=== PATIENT | female | born 1955 | race Caucasian/White ===

== ENCOUNTER 2017-04-05 14:02 | Emergency (ER) | payer MEDICARE, MEDICAID ==
[~2017-04-05] VITALS: Ht 167.6 cm; Wt 100.0 kg
[~2017-04-05 14:02] MED LIST: CITA20TA11 PO; METH-603 PO; NORCO10T PO; ZOF4T PO
[2017-04-05] MEDS ORDERED: MUPI22OI30 TOP (15:14)
[2017-04-05 15:29] VITALS: BP 154/91
== END 2017-04-05 15:30 | disposition home or self-care (01) ==
LOC: ER 14:03
DX: A49.02 Methicillin resistant Staphylococcus aureus infection, unspecified site (principal); J45.909 Unspecified asthma, uncomplicated; K21.9 Gastro-esophageal reflux disease without esophagitis; G89.29 Other chronic pain; Z79.899 Other long term (current) drug therapy
CPT/HCPCS: 99283

== ENCOUNTER 2018-01-09 03:47 | Emergency (ER) | payer MEDICARE, MEDICAID ==
[~2018-01-09] VITALS: Ht 162.6 cm; Wt 81.8 kg
[~2018-01-09 03:47] MED LIST changes: +CITA-278 PO; -CITA20TA11 PO
[2018-01-09 04:28] VITALS: BP 139/70
== END 2018-01-09 04:30 ==
LOC: ER 03:47
DX: Z04.1 Encounter for examination and observation following transport accident (principal); J45.909 Unspecified asthma, uncomplicated; K21.9 Gastro-esophageal reflux disease without esophagitis; G89.29 Other chronic pain; Z79.899 Other long term (current) drug therapy; V89.0XXA Person injured in unspecified motor-vehicle accident, nontraffic, initial encounter; Y93.89 Activity, other specified; Y92.488 Other paved roadways as the place of occurrence of the external cause; Y99.8 Other external cause status
CPT/HCPCS: 99283

== ENCOUNTER 2019-06-14 17:29 | Emergency (ER) | payer MEDICAID, MEDICARE ==
[~2019-06-14] VITALS: Ht 162.6 cm; Wt 80.4 kg
[~2019-06-14 17:29] MED LIST changes: -CITA-278 PO; +CITA20TA28 PO
[2019-06-14 18:03] VITALS: BP 144/81
[2019-06-14] MEDS ORDERED: MUPI22OI30 TOP (20:14)
== END 2019-06-14 20:31 | disposition home or self-care (01) ==
LOC: ER 17:31
DX: J34.89 Other specified disorders of nose and nasal sinuses (principal); J45.909 Unspecified asthma, uncomplicated; K21.9 Gastro-esophageal reflux disease without esophagitis; G89.29 Other chronic pain; F41.9 Anxiety disorder, unspecified; F32.9 Major depressive disorder, single episode, unspecified; F41.0 Panic disorder [episodic paroxysmal anxiety]; Z98.890 Other specified postprocedural states; Z22.322 Carrier or suspected carrier of Methicillin resistant Staphylococcus aureus
CPT/HCPCS: 99283

== ENCOUNTER 2019-06-16 12:27 | Emergency (ER) | payer MEDICARE ==
[~2019-06-16] VITALS: Ht 162.6 cm; Wt 81.0 kg
[~2019-06-16 12:27] MED LIST changes: +MUPI22OI30 TOP
[2019-06-16 12:30] VITALS: BP 131/77
[2019-06-16] MEDS ORDERED: LIDOcaine 1% W/epiNEPHrine 1:200,000 10ml vial IJ ONE (12:40)
[2019-06-16] MEDS ORDERED: CEPH-572 PO (12:55)
== END 2019-06-16 13:17 | disposition home or self-care (01) ==
LOC: ER 12:28
DX: S60.552A Superficial foreign body of left hand, initial encounter (principal); J45.909 Unspecified asthma, uncomplicated; K21.9 Gastro-esophageal reflux disease without esophagitis; G89.29 Other chronic pain; F41.9 Anxiety disorder, unspecified; F32.9 Major depressive disorder, single episode, unspecified; F41.0 Panic disorder [episodic paroxysmal anxiety]; Z98.890 Other specified postprocedural states; Z79.2 Long term (current) use of antibiotics; Z79.899 Other long term (current) drug therapy; W45.8XXA Other foreign body or object entering through skin, initial encounter; Y93.89 Activity, other specified; Y92.89 Other specified places as the place of occurrence of the external cause; Y99.8 Other external cause status
CPT/HCPCS: 64450; 99284

== ENCOUNTER 2025-01-14 16:18 | Inpatient (IN) | payer MEDICARE ==
[~2025-01-14] VITALS: Ht 157.5 cm; Wt 78.0 kg
[~2025-01-14 16:18] MED LIST changes: +CITA-178 PO; -CITA20TA28 PO; -MUPI22OI30 TOP
--- NOTE | 2025-01-14 16:30 | Physician Documentation ---
Addendum CHIEF COMPLAINT/HPI: The patient is a 69-year-old female with no significant past medical history who presents with tachycardia and a painful, red and swollen left lower leg of three days' duration. Her only medication is half an aspirin every day. REVIEW OF SYSTEMS: Constitutional: Denies chills, fatigue, fever, weight gain or weight loss. HEENT: Denies hearing loss, sinus pressure or visual changes. Respiratory: Denies cough, shortness of breath or wheezing. Cardiovascular: Denies chest pain, pain while walking (claudication), edema or palpitations. Gastrointestinal: Denies abdominal pain, blood in stool, constipation, diarrhea, heartburn, loss of appetite, nausea or vomiting. Genitourinary: Denies painful urination (dysuria), excessive amount of urine (polyuria) or urinary frequency. Metabolic/Endocrine: Denies cold intolerance, heat intolerance, excessive thirst (polydipsia) or excessive hunger (polyphagia). Neurological: Denies dizziness, extremity numbness, extremity weakness, headaches, seizures or tremors. Psychiatric: Denies anxiety or depression. Integumentary: Denies breast discharge, breast lump, hives, mole change(s), rash or skin lesion. Musculoskeletal: Left lower leg is painful and swollen Hematologic: Denies easily bleeding, easily bruises, lymphedema or issues with blood clots. Immunologic: Denies food allergies or seasonal allergies. PHYSICAL EXAMINATION: Vitals and nursing note reviewed. Constitutional: General: Patient is awake, alert, oriented x 4 in no acute distress and well appearing. Speech is clear and lucid. Appearance: Normal appearance. Patient is not ill-appearing, toxic-appearing or diaphoretic. HENT: Head: Normocephalic and atraumatic. Mouth: Mucous membranes are moist. Pharynx: Oropharynx is clear. Eyes: General: No scleral icterus. Extraocular Movements: Extraocular movements intact. Pupils: Pupils are equal, round, and reactive to light. Neck: Supple, no Kernig or Brudzinski sign. Cardiovascular: Rate and Rhythm: Tachycardia. Heart sounds: No murmur heard. Pulmonary: Effort: No respiratory distress. Breath sounds: No wheezing, rhonchi or rales. Abdominal: General: There is no distension. Palpations: There is no fluid wave, hepatomegaly or mass. Tenderness: There is no abdominal tenderness. There is no guarding. Musculoskeletal: General: Left lower leg is erythematous, tender and swollen.. Skin: Coloration: Skin is not jaundiced. Findings: Cellulitis of the left lower leg. Neurological: Mental Status: Patient is alert. MEDICAL DECISION MAKING: This 69-year-old female presents with cellulitis of the left lower leg in addition to new onset AFib with RVR. I am obtaining a vascular study of the leg and starting her on fluids, antibiotics and diltiazem to control her rate. I have also ordered a CTA chest to rule out PE. She will require admission. Departure Disposition: ADMITTED INPATIENT Admitted to Inpatient Unit: to hospitalist Impression: Primary Impression: Atrial fibrillation with rapid ventricular response Additional Impression: Cellulitis of left lower leg Condition: FREDRICK Montes MD Jan 14, 2025 16:30
--- NOTE | 2025-01-14 16:33 | ELECTROCARDIOGRAPH REPORT ---
[facility] Test Date: 2025-01-14 Test Time: 16:31:11 Pat Name: ARMANDO ARRIAGA Department: [facility]- Patient ID: [id number] Room: Gender: F Analyst Programmer: : [id number] Requested By: FREDRICK GASPAR Order Number: [id number] Reading MD: Measurements Intervals [place] Rate: 149 P: 0 SD: 0 QRS: -22 QRSD: 96 T: 59 QT: 300 QTc: 473 Interpretive Statements Atrial fibrillation Borderline left axis deviation ST depression, probably rate related Please click the below link to view image of tracing.
--- NOTE | 2025-01-14 16:49 | RADIOLOGY REPORT ---
EXAM: DI CHEST,SINGLE VIEW HISTORY: R/O INFECTION COMPARISON: None TECHNIQUE: Portable upright AP view of the chest was performed. FINDINGS: There is mild central interstitial prominence. No pneumothorax or consolidative infiltrates. The heart is not enlarged. There is thoracic dextroscoliosis. IMPRESSION: Mild central interstitial prominence may be due to reactive airways disease or mild CHF. The lungs are otherwise clear.
[2025-01-14] MEDS: normal saline 1000ml 1,000 ML IV ONE ×4 (16:52→16:53)
[2025-01-14 16:55] LABS: MEAN PLATELET VOLUME 7.7 FL (7.4-10.4); RED CELL DISTRIBUTION WIDTH 14.4 % (11.5-14.5)
[2025-01-14 17:17] LABS: CREATININE 1.04 MG/DL (0.40-0.90); PRO BRAIN NATRIURETIC PEPTIDE 224 PG/ML (0-125); TOTAL CARBON DIOXIDE 26.5 MMOL/L (24-32); eCRCL 40 ML/MIN; eGFR 52 ML/MIN
[2025-01-14] MEDS: vancomycin/NS 1 GM ADD-VANTAGE 250 ML IV ONE (17:21)
[2025-01-14] MEDS: diltiazem 5mg/ml 5ml inj. IV ONE (17:26)
[2025-01-14 17:37] LABS: INR 1.0 INR
[2025-01-14] MEDS: piperacillin/tazo 4.5gm/100ml 100 ML IV SCH (17:55)
[2025-01-14] MEDS ORDERED: magnesium Cl slow-release 64mg tablet PO PRN (18:00)
[2025-01-14] MEDS ORDERED: mag hydrox/Alum hydrox/simeth 30ml oral suspension PO PRN (18:00)
[2025-01-14] MEDS ORDERED: magnesium sulf-water 4G/100mL 100 ML IV PRN (18:00)
[2025-01-14] MEDS ORDERED: magnesium sulf-water 2g/50mL 50 ML IV PRN (18:00)
[2025-01-14] MEDS ORDERED: morphine 4 MG/ML inj SYRINge IV PRN (18:00)
[2025-01-14] MEDS ORDERED: ondansetron/PF 4mg/2ml inj IV PRN (18:00)
[2025-01-14] MEDS ORDERED: potassium Cl 40MEQ/1/2NS 520ml 520 ML IV PRN (18:00)
[2025-01-14] MEDS ORDERED: potassium Cl 20 mEq SR tablet PO PRN ×2 (18:00)
--- NOTE | 2025-01-14 18:07 | RADIOLOGY REPORT ---
EXAM: CT CTA CHEST PE W/ IV CONTRAST HISTORY: Swollen leg and new onset AF RVR TECHNIQUE: CT angiogram was performed. CT scans at this facility use dose modulation, iterative reconstruction, and/or weight based dosing when appropriate to reduce radiation dose to as low as reasonably achievable. Coronal and sagittal reformations and maximum intensity projection images were created from the transaxial source data by the ct mri technologist and workstation, as well as 3-D volume rendered images with MIPs. COMPARISON: None FINDINGS: [LOWER NECK]: Unremarkable [LYMPH NODES/MEDIASTINUM]: No abnormal lymph nodes by CT size criteria [CARDIOVASCULAR]: Normal cardiac size. No pericardial effusion. No aneurysmal dilatation of the great vessels. Coronary artery calcifications. [PULMONARY ARTERIES]: No pulmonary arterial filling defect. Normal caliber of the main pulmonary artery. No evidence of elevated right heart pressures. [UPPER ABDOMEN]: Small sliding hiatal hernia. Mild stool burden. Trace cholelithiasis. [MUSCULOSKELETAL]: No acute fracture or aggressive focal osseous lesion. Multilevel degenerative change of the visualized spine. prior anterior cervical discectomy and fusion [CHEST WALL]: Unremarkable. [LUNG PARENCHYMA/PLEURAL SPACE]: No consolidation, suspicious focal airspace opacity, or suspicious nodules. No pleural effusion or pneumothorax. IMPRESSION: 1. No CTA evidence of pulmonary embolism.
--- NOTE | 2025-01-14 18:13 | VASCULAR REPORT ---
EXAM: VASC VL VENOUS HISTORY: Swelling TECHNIQUE: Duplex Doppler evaluation of the deep venous system of the left lower extremity from the common femoral vein to the popliteal vein including color Doppler and spectral/pulsed waveform analysis was performed. COMPARISON: None FINDINGS: The common femoral vein demonstrates appropriate compressibility and waveform variability. There is compressibility/patency of the great saphenous vein at the proximal thigh. The femoral vein demonstrates appropriate compressibility and waveform variability. The deep femoral vein demonstrates appropriate compressibility and waveform variability. The popliteal vein demonstrates appropriate compressibility and waveform variability. There is normal compressibility at the tibioperoneal trunk. IMPRESSION: 1. No left femoropopliteal venous thrombosis. If clinical concern/symptoms persist or worsen, short-interval follow-up study is suggested.
[2025-01-14] MEDS ORDERED: NO HOME MEDS (18:46)
[2025-01-14 18:56] LABS: CREATININE 0.93 MG/DL (0.40-0.90); TOTAL CARBON DIOXIDE 25.3 MMOL/L (24-32); eCRCL 45 ML/MIN; eGFR 60 ML/MIN
[2025-01-14 19:17] LABS: LEUKOCYTE ESTERASE ,URINE NEGATIVE (Neg); NITRITES, URINE NEGATIVE (Neg); OCCULT BLOOD,URINE TRACE-INTACT (Neg)
[2025-01-14 19:27] LABS: UA COLLECTION TYPE CLN CATCH MIDSTREAM
[2025-01-14 19:35] LABS: AMORPHOUS URATES 1+; MUCUS STRANDS FEW /LPF (Neg); SQUAMOUS EPITHELIAL CELL,UR FEW /LPF (FEW)
--- NOTE | 2025-01-14 19:53 | HISTORY AND PHYSICAL-Residence ---
History & Physical Providers to CC Resident Creating Document: SEAN MARROQUIN, RES ~ History of Present Illness Primary Medical Doctor: [facility] Reason for Admit\Complaint: Cellulitis of left leg, Atrial fibrillation with RVR History of Present Illness This is a 69 years old female with past medical history of Asthma, Bronchitis ,Pneumonia,GERD,Chronic Pain,Anxiety,Depression ,Panic Disorder, methamphetamine use comes to ED with severe left lower extremity pain and elevated heart rate. Patient endorses fever and chills from past 2 days, and initially she noticed small 4/10 painful red bump on her lateral side of left foot over the malleolus, which is gradually progress over over entire left leg including medial side of the thigh, with pain on 9/10 intensity stabbing pain, warm and tender to touch with no aggravating or relieving factors. Patient initial EKG shows AFib with RVR, and given a dose of diltiazem IV 20 mg in ED, she is currently having heart rate of 120-130 Patient denies any chest, diaphoresis, palpitations and edema Patient denies any history of congestive heart failure, coronary artery disease, AFib in the past Allergies: Coded Allergies: No Known Allergies (Unverified , 01/09/18) Home Medications Home Medications Active Reported No Home Medications (Home Med List) Each Past Medical History Past Medical History Asthma Bronchitis Pneumonia GERD Chronic Pain Anxiety Depression Panic Disorder Past Surgical History Surgical History Comment Cervical fusion surgery Past Social History Social History Comment Patient lives alone in a trailer, she does not have primary care physician, lives alone She has not alcohol drinker, not a smoker, she endorses use of methamphetamine use Occupation-retired, she ambulate herself without any assistance in her home Smoking: Non-Smoker Alcohol Use: None Drug Use: None Lives with: Spouse Occupation: disabled ROS ROS Constitutional: Awake, alert, oriented x4, Eyes: No pain, erythema, discharge, blurring of vision ENT: No teeth, No sore throat, epistaxis, tinnitus Cardiovascular: See HPI Respiratory: No shortness of breath , No cough, hemoptysis Gastrointestinal: No decrease appetite , No Nausea, vomiting,diarrhea and abdominal pain. Genitourinary: No frequency,urgency,No nocturia, hematuria or dysuria Musculoskeletal: See HPI Integumentary: No change in skin, hair, nails. No swelling, bruising, abrasions Neurologic: patient didnot report any symptoms Psychiatric: No delusions, loss of interest in normal activity or change in sleep pattern, hallucinations, suicidal ideations Endocrine: No fatigue, weakness, polydipsia, polyuria, change in appetite, heat or cold intolerance, sweating, dry skin Hematological: No bleeding, petechiae, Allergies: No asthma or urticaria Exam Vitals: Vital Signs Date Time Temp Pulse Resp B/P (MAP) Pulse Ox O2 Delivery O2 Flow Rate FiO2 01/14/25 18:33 98.8 122 20 106/64 (78) 96 01/14/25 17:33 0 General: GENERAL: Awake, alert, oriented x4 HEENT : Normocephalic, atraumatic, pupils equal and reactive to light, extraocular movements intact, no scleral icterus or conjunctival pallor, nasal mucosa is moist, oral mucosa moist, NECK: Nontender nodule felt on neck,trachea midline, no JV distention RESPIRATORY: Chest expansion equal bilaterally, breath sounds vesicular, no wheezes, or rhonchi. No use of accessory muscles, no tenderness on palpation. CARDIOVASCULAR: Tachycardic-irregularly irregular, no murmurs, no rubs, or gallops ABDOMEN: Soft, nontender, nondistended, bowel sounds present and normoactive. No organomegaly, no palpable mass, no rebound or guarding NEUROLOGICAL: Alert, oriented, normal memory, speech is normal Cranial nerves II-XII- intact Motor strength 5/5 on right side, could not elicit on left side because of pain Sensation-intact in all extremities Reflexes +2 and symmetrical Coordination is intact EXTREMITIES: Red-warm swelling felt on palpation which is tender, decreased pulsation on left lower extremity, multiple nail scratches are seen on right lower extremity and some on left lower extremity Psychiatric:Appropriate mood and affect,No hallucinations or suicidal ideation Diagnostic Data Last Recorded Lab Results: 01/14/25 1634 01/14/25 1817 Diagnostic Data: Laboratory Tests Test 01/14/25 16:35 Prothrombin Time 10.0 SECONDS (9.0-12.0) INR International Normalized Ratio 1.0 INR Coagulation Comments Advance Care Planning Advanced Care plannin - 30 Minutes Additional Plan 69 years old female with Asthma,Bronchitis,Pneumonia,GERD,Chronic Pain,Anxiety,Depression ,Panic Disorder, methamphetamine use is currently evaluated for cellulitis of left lower extremity Left lower leg swelling Likely due to Cellulites DVT ruled out Patient has risk factor of methamphetamine use, poor living condition Temperature 99.5, pulse 151, SpO2 96 on room air WBC normal, procalcitonin 2.11, CRP:2.3, lactic acid is normal Vascular ultrasound:No left femoropopliteal venous thrombosis Chest/thorax CTA: No CTA evidence of pulmonary embolism. Given 1 dose of vancomycin in ED Preliminary blood cultures are negative Plan is to continue IV Zosyn 4.5 mg and vancomycin pharmacy to dose Wound care consulted Follow up with CBC/CMP Atrial fibrillation with RVR CHADVASC score-2 Differential includes pulmonary embolus, structural heart disease, Initial EKG shows AFib with RVR Initial Troponin are negative Follow up with urine tox,TSH, echocardiogram We will start Eliquis 2.5 mg p.o. b.i.d. from tomorrow Amphetamine use disorder Substance use navigator ordered Chronic conditions Patient not taking any medication Asthma Anxiety Depression Code Status: Full DVT prophylaxis: Heparin subQ Analgesia/Sedation: Morphine Line/tube: Peripheral Nutrition: Regular PT: Order Prognosis: Guarded Disposition: Patient will be monitored in PCU under 24 hours telemetry Sean Marroquin PGY1-Internal Medicine Resident Date of Service: Jan 14, 2025 Billing Provider: ARJUN CARRANZA MD Common Visit Codes: [id number] INP/OBS CARE (HIGH) Secondary Visit Codes: [id number] CARE PLAN 30 MINUTES SEAN MARROQUIN, RES Jan 14, 2025 19:53 ARJUN CARRANZA MD Jan 19, 2025 15:25
[2025-01-14] MEDS: docusate sod 100mg capsule PO SCH (20:00)
[2025-01-14] MEDS ORDERED: heparin, porcine 5000 units/ml vial SQ SCH (20:00)
[2025-01-14] MEDS: K and/or MAG REPLACEMENT MC SCH (20:00)
[2025-01-14] MEDS: PERFLUTREN PROTEIN-A MICROSPHR (Optison) 0.22 MG/ML 3ML VIAL IV ONE (20:04)
[2025-01-14 20:18] LABS: URINE AMPHETAMINE SCREEN POSITIVE (Neg); URINE BARBITUATE SCREEN NEGATIVE (Neg); URINE BENZODIAZEPINES SCREEN NEGATIVE (Neg); URINE CANNABINOID SCREEN NEGATIVE (Neg); URINE COCAINE SCREEN NEGATIVE (Neg); URINE METHADONE SCREEN NEGATIVE (Neg); URINE OPIATE SCREEN NEGATIVE (Neg); URINE PHENCYCLIDINE SCREEN NEGATIVE (Neg)
[2025-01-14 21:36] LABS: ETHANOL < 10 MG/DL (<10)
[2025-01-14] MEDS: multivitamins, therapeutics tablet PO SCH (22:46)
[2025-01-15] VITALS (9 sets, daily range): BP systolic 100–139; BP diastolic 49–68; PULSE 83–101; RESP 12–24; TEMP 97.8–100.7; O2SAT 94–99
[2025-01-15] MEDS: ringers solution, lacted 1,000 ML IV ONE (02:13)
[2025-01-15] MEDS: morphine 4 MG/ML inj SYRINge IV PRN (02:33)
[2025-01-15] MEDS: metoprolol tartrate 1mg/ml inj IV SCH (03:29)
[2025-01-15 07:57] LABS: MEAN PLATELET VOLUME 7.8 FL (7.4-10.4); RED CELL DISTRIBUTION WIDTH 14.4 % (11.5-14.5)
[2025-01-15 08:00] LABS: CREATININE 0.80 MG/DL (0.40-0.90); TOTAL CARBON DIOXIDE 25.5 MMOL/L (24-32); eCRCL 52 ML/MIN; eGFR 71 ML/MIN
[2025-01-15] MEDS: vancomycin/NS 1 GM ADD-VANTAGE 250 ML IV SCH (09:39)
[2025-01-15] MEDS: metoprolol succinate 25mg (24-HOUR) SR. Tablet PO SCH (11:05)
--- NOTE | 2025-01-15 13:23 | RADIOLOGY REPORT ---
EXAM: CT CT LOWER EXTREMITY INDICATION: OSTEOMYELITIS WITH HEAVY METHAMPHETAMINE USE TECHNIQUE: Axial images of left lower extremity have been obtained along with coronal and sagittal reformatted images. All CT scans at this facility use dose modulation, iterative reconstruction, and/or weight based dosing when appropriate to reduce radiation dose to as low as reasonably achievable. COMPARISON: None FINDINGS: BONES: No CT evidence of an acute fracture or aggressive osseous lesion. Slight relative hypoattenuation of the distal fibula which may be seen in the setting of hyperemia however if continued clinical concern for osteomyelitis and if there is overlying ulceration, osteomyelitis not excluded. Subchondral cysts of the medial tibial plateau MUSCLES: No abnormal attenuation. JOINT SPACES: No joint effusion. TENDONS/LIGAMENTS: Fluid distention of the peroneal tendon sheath of the malleolar to inframalleolar segment. Slight thickening of the distal achilles tendon correlate for tendinosis. OTHER: Vascular calcifications. Significant surrounding subcutaneous adipose tissue edema of the entirety left lower extremity extending to the level of the forefoot. No drainable fluid collection suspected likely reactive left inguinal lymph nodes chondrocalcinosis. Midfoot degenerative change particularly with subchondral cysts of the intermediate cuneiform. Subchondral cysts of the superolateral talar dome. IMPRESSION: 1. No CT evidence of an acute fracture or aggressive osseous lesion. 2. Slight relative hypoattenuation of the distal fibula which may be seen in the setting of hyperemia however if continued clinical concern for osteomyelitis and if there is overlying ulceration, osteomyelitis not excluded. 3. Significant surrounding subcutaneous adipose tissue edema of the entirety left lower extremity extending to the level of the forefoot.
--- NOTE | 2025-01-15 17:39 | PROGRESS NOTE- Residence ---
Progress Note - Resident Providers to CC Resident Creating Document: KATARINA ZAPATA RES ~ Antibiotic Timeout Antibiotic Ordered?: Yes Subjective Seen and examined the patient at bedside. Still endorses pain over the left lower extremity, redness. Extending from the lower leg to above knee. We did the CAT scan of the lower extremity and they could not able to rule out osteomyelitis and we are evaluating with the MRI of the lower extremity for possible osteomyelitis. Telemetry showing sinus rhythm with heart rate in 90s. Objective Vital Signs Date Time Temp Pulse Resp B/P (MAP) Pulse Ox O2 Delivery O2 Flow Rate FiO2 01/15/25 15:00 98.7 94 12 104/56 (72) 96 Room Air 01/15/25 08:00 0.0 Result Diagram: 01/15/2564101/15/25641 GENERAL: Awake, alert, oriented x4 HEENT : Normocephalic, atraumatic, pupils equal and reactive to light, extraocular movements intact, no scleral icterus or conjunctival pallor, nasal mucosa is moist, oral mucosa moist, NECK: Nontender nodule felt on neck,trachea midline, no JV distention RESPIRATORY: Chest expansion equal bilaterally, breath sounds vesicular, no wheezes, or rhonchi. No use of accessory muscles, no tenderness on palpation. CARDIOVASCULAR: Tachycardic-irregularly irregular, no murmurs, no rubs, or gallops ABDOMEN: Soft, nontender, nondistended, bowel sounds present and normoactive. No organomegaly, no palpable mass, no rebound or guarding NEUROLOGICAL: Alert, oriented, normal memory, speech is normal Cranial nerves II-XII- intact Motor strength 5/5 on right side, could not elicit on left side because of pain Sensation-intact in all extremities Reflexes +2 and symmetrical Coordination is intact EXTREMITIES: Red-warm swelling felt on palpation which is tender, decreased pulsation on left lower extremity, multiple nail scratches are seen on right lower extremity and some on left lower extremity Psychiatric:Appropriate mood and affect Coagulation Studies Laboratory Tests Test 01/14/25 16:35 Prothrombin Time 10.0 SECONDS (9.0-12.0) INR International Normalized Ratio 1.0 INR Coagulation Comments Advance Care Planning Advanced Care plannin - 30 Minutes Plan Plan Left lower extremity cellulitis Sepsis on POA We will continue vancomycin and Zosyn We will consult ID if MRI positive to be with osteomyelitis Received 2 L of normal saline and 1 L of ringer lactate CT lower extremity 1. No CT evidence of an acute fracture or aggressive osseous lesion. 2. Slight relative hypoattenuation of the distal fibula which may be seen in the setting of hyperemia however if continued clinical concern for osteomyelitis and if there is overlying ulceration, osteomyelitis not excluded. 3.Significant surrounding subcutaneous adipose tissue edema of the entirety left lower extremity extending to the level of the forefoot. Ordered MRI we will follow up with the results for osteomyelitis We will continue IV normal saline at the rate of 100 mL/hour AFib with RVR , resolved Kofi Vasc score of 2 Dilated cardiomyopathy with pulmonary artery hypertension Cor pulmonale Currently on metoprolol 50 mg p.o. daily Started on Eliquis 5 mg p.o. b.i.d. Echo showed LVEF of 55-60% and the pulmonary artery systolic pressure 48 On metoprolol 50 p.o. daily Substance use Methamphetamine use On Detox protocol So substance use on social consults were placed Urinalysis showed methamphetamine Anxiety Depression Discontinued home meds of Celexa, methadone from the med rec list Code status: Full code DVT prophylaxis: On Eliquis PT: Ordered Prognosis: Guarded Katarina Zapata IM resident, PGY 2 Date of Service: Jan 15, 2025 Billing Provider: ARJUN CARRANZA MD Common Visit Codes: [id number] INP/OBS CARE(HIGH) KATARINA ZAPATA, RES Jan 15, 2025 17:39 ARJUN CARRANZA MD Jan 19, 2025 15:26
[2025-01-15] MEDS: magnesium hydroxide 30ml (MOM) UD suspension PO PRN (20:57)
[2025-01-15] MEDS: normal saline 1000ml 1,000 ML IV SCH (20:59)
[2025-01-16] VITALS (8 sets, daily range): BP systolic 103–143; BP diastolic 55–73; PULSE 79–97; RESP 12–23; TEMP 96.7–97.7; O2SAT 96–99
[2025-01-16] MEDS: VANCOMYCIN LEVEL IV ONE (05:30)
--- NOTE | 2025-01-16 05:35 | CARDIOLOGY REPORT ---
APPROVED REPORT EXAM: Comprehensive 2D, Doppler, and color-flow Echocardiogram. Patient Location: 3026 A Blood Pressure: 119/68 mmHg Heart Rate: 86-115 bpm Rhythm: Atrial Fibrillation Indications Arrhythmia Atrial Fibrillation with RVR Lower Leg Infection Cellutitus of Lower Legs Hx of Meth Use Community Health Education Coordinator: None Previous echo: None 2D Dimensions RVDd 3.4 cm LA Diam 4.0 cm RA Minor 3.8 cm LVOT Diameter 2.01 (1.8-2.4cm) IVC 23.00 mm CO 6.6 L/min M-Mode Dimensions Left Atrium(MM) 3.54 (2.5-4.0cm) IVSd 1.07 (0.7-1.1cm) LVDd 4.30 (4.0-5.6cm) Aortic Root 3.17 (2.2-3.7cm) PWd 1.10 (0.7-1.1cm) Aortic Cusp Exc 2.10 (1.5-2.0cm) IVSs 1.50 cm MV EPSS 1.3 (<0.5cm) LVDs 2.99 (2.0-3.8cm) FS (%) 30 % PWs 1.50 cm ESV(Teich) 34.8 ml LVEF(%) 58 (>50%) Aortic Valve AoV Peak Jaison. 184.0 cm/s AoV VTI 32.8 cm AO Peak GR. 13.5 mmHg AO Mean GR. 8 mmHg LVOT VTI 22.57 cm LVOT Peak Jaison. 88.4 cm/s SORAYA(VTI)/BSA 2.18 cm2/m2 SORAYA (VTI) 2.18 cm2 AI P 1/2 Time 348 ms AV DI 0.69 % Mitral Valve MV E Velocity 118.5 cm/s MV DECEL TIME 236 ms MV A Velocity 108.5 cm/s E/A Ratio 1.1 Tricuspid Valve TR P. Velocity 308 cm/s RAP ESTIMATE 10 mmHg TR Peak Gr. 38 mmHg RVSP 48 mmHg LEFT VENTRICLE Normal LV size and wall thickness. Overall systolic function is normal. Overall LVEF is 55-60%. RIGHT VENTRICLE Right ventricle is moderately dilated with grossly normal function. Estimated PA systolic pressure is 48 mmHg. ATRIA The left atrium size is normal. The right atrium size is normal. AORTIC VALVE Trileaflet AV appears sclerotic and mildly calcified without stenosis. Moderate insufficiency. MITRAL VALVE Mild MV annular calcification without stenosis. Trace regurgitation. TRICUSPID VALVE TV appears structurally normal with trace regurgitation. Elevated right heart pressures as noted above. PULMONIC VALVE Normal PV without stenosis, physiologic insufficiency. GREAT VESSELS The aortic root is normal in size. IVC is dilated and collapses less than 50% with inspiration. PERICARDIUM Normal pericardium. No pericardial effusion seen. Conclusion Normal LV size and wall thickness. Overall systolic function is normal. Overall LVEF is 55-60%. Right ventricle is moderately dilated with grossly normal function. Estimated PA systolic pressure is 48 mmHg. The left atrium size is normal. The right atrium size is normal. Trileaflet AV appears sclerotic and mildly calcified without stenosis. Moderate insufficiency. Mild MV annular calcification without stenosis. Trace regurgitation. TV appears structurally normal with trace regurgitation. Normal pericardium. No pericardial effusion seen.
[2025-01-16 06:49] LABS: MEAN PLATELET VOLUME 8.1 FL (7.4-10.4); RED CELL DISTRIBUTION WIDTH 14.2 % (11.5-14.5)
[2025-01-16 07:06] LABS: CREATININE 0.89 MG/DL (0.40-0.90); TOTAL CARBON DIOXIDE 27.1 MMOL/L (24-32); eCRCL 47 ML/MIN; eGFR 63 ML/MIN
--- NOTE | 2025-01-16 12:19 | RADIOLOGY REPORT ---
CLINICAL HISTORY: Osteomyelitis of left lower leg. TECHNIQUE: Multi sequence multi planar MRI images of the left lower leg were obtained prior to and after the uneventful administration of 15 mL clariscan contrast. COMPARISON: CT CT LOWER EXTREMITY on DOS: 01/15/25, VASC VL VENOUS on DOS: 01/14/25 FINDINGS: Marked subcutaneous edema and enhancement in the right lower leg consistent with cellulitis in the appropriate clinical setting. No peripherally enhancing fluid collection identified to suggest abscess. No findings are seen to suggest myositis or fasciitis. No evidence for osteomyelitis. IMPRESSION: Right lower leg cellulitis without evidence for abscess, myositis, or osteomyelitis.
[2025-01-16] MEDS: GADOTERATE MEGLUMINE 7.5 MMOL/15 ML VIAL IV ONE (15:05)
--- NOTE | 2025-01-16 17:35 | PROGRESS NOTE- Residence ---
Progress Note - Resident Providers to CC Resident Creating Document: GISSEL MARROQUIN RES ~ Antibiotic Timeout Antibiotic Ordered?: Yes Subjective Patient was examined at the bed, she still endorses pain in her left lower extremity, cellulitis remains within the previously marked borders with no progression beyond prior demarcation, and denies any other acute symptoms other than mild tiredness Objective Vital Signs Date Time Temp Pulse Resp B/P (MAP) Pulse Ox O2 Delivery O2 Flow Rate FiO2 01/16/25 14:54 18 01/16/25 11:00 97.6 82 126/71 (89) 96 Room Air 01/15/25 08:00 0.0 Result Diagram: 01/16/2561501/16/25 06 GENERAL: Awake, alert, oriented x4 HEENT : Normocephalic, atraumatic, pupils equal and reactive to light, extraocular movements intact, no scleral icterus or conjunctival pallor, nasal mucosa is moist, oral mucosa moist, NECK: Nontender nodule felt on neck, nontender nodule felt on thyroid gland, trachea midline, no JV distention RESPIRATORY: Chest expansion equal bilaterally, breath sounds vesicular, no wheezes, or rhonchi. No use of accessory muscles, no tenderness on palpation. CARDIOVASCULAR: Tachycardic-irregularly irregular, no murmurs, no rubs, or gallops ABDOMEN: Soft, nontender, nondistended, bowel sounds present and normoactive. No organomegaly, no palpable mass, no rebound or guarding NEUROLOGICAL: Alert, oriented, normal memory, speech is normal Cranial nerves II-XII- intact Motor strength 5/5 on right side, could not elicit on left side because of pain Sensation-intact in all extremities Reflexes +2 and symmetrical Coordination is intact EXTREMITIES: Red-warm swelling felt on palpation which is tender, decreased pulsation on left lower extremity, multiple nail scratches are seen on right lower extremity and some on left lower extremity, traumatic injury at left posterior heel Psychiatric:Appropriate mood and affect Coagulation Studies Laboratory Tests Test 01/14/25 16:35 Prothrombin Time 10.0 SECONDS (9.0-12.0) INR International Normalized Ratio 1.0 INR Coagulation Comments Advance Care Planning Advanced Care plannin - 30 Minutes Plan Plan Left lower extremity cellulitis Sepsis on POA Vitals are stable, WBC is normal, Received 2 L of normal saline and 1 L of ringer lactate CT lower extremity 1. No CT evidence of an acute fracture or aggressive osseous lesion. 2. Slight relative hypoattenuation of the distal fibula which may be seen in the setting of hyperemia however if continued clinical concern for osteomyelitis and if there is overlying ulceration, osteomyelitis not excluded. 3.Significant surrounding subcutaneous adipose tissue edema of the entirety left lower extremity extending to the level of the forefoot. MRI ruled out osteomyelitis Continue vancomycin pharmacy to dose and Zosyn 4.5 g per 100 mL We will continue IV normal saline at the rate of 100 mL/hour Follow up with procalcitonin AFib with RVR , resolved Kofi Vasc score of 2 Dilated cardiomyopathy with pulmonary artery hypertension Cor pulmonale Heart rate today is 82 Explained patient about risk and benefits of Eliquis, patient agreed with the plan Currently on metoprolol 50 mg p.o. daily Echo showed LVEF of 55-60% and the pulmonary artery systolic pressure 48 Continue Eliquis 5 mg p.o. b.i.d. Continue On metoprolol succinate 50 p.o. daily Substance use Methamphetamine use substance use navigator on social consults were placed Urinalysis showed methamphetamine Anxiety Depression Patient is currently on Ativan q.2h p.r.n. Melatonin for sleep Code status: Full code DVT prophylaxis: On Eliquis PT: Ordered Prognosis: Guarded Disposition-patient will be monitored in PCU with 24 hours telemetry, she is currently on Eliquis and her MRI ruled out osteomyelitis left lower extremity, possible discharge in 48 hours if patient condition is stable Gissel Marroquin PGY1-Internal Medicine Resident Date of Service: Jan 16, 2025 Billing Provider: DELLA MCMAHON DO Common Visit Codes: [id number] INP/OBS CARE(HIGH) GISSEL MARROQUIN, RES Jan 16, 2025 17:35 DELLA MCMAHON DO Jan 16, 2025 18:17
[2025-01-16] MEDS: VANCOmycin 1250MG/NS 250ml Bag 250 ML IV SCH (19:28)
[2025-01-17] VITALS (8 sets, daily range): BP systolic 104–129; BP diastolic 53–66; PULSE 67–83; RESP 16–20; TEMP 97.7–98.5; O2SAT 95–98
[2025-01-17] MEDS: HYDROcodone/acetaminophen 5mg/325mg tablet PO PRN (02:26)
[2025-01-17 06:35] LABS: MEAN PLATELET VOLUME 8.0 FL (7.4-10.4); RED CELL DISTRIBUTION WIDTH 14.2 % (11.5-14.5)
[2025-01-17 06:56] LABS: CREATININE 0.69 MG/DL (0.40-0.90); TOTAL CARBON DIOXIDE 29.5 MMOL/L (24-32); eCRCL 60 ML/MIN; eGFR 84 ML/MIN
[2025-01-17] MEDS: HYDROcodone/acetaminophen 10/325mg tab PO PRN (12:14)
--- NOTE | 2025-01-17 16:25 | PROGRESS NOTE- Residence ---
Progress Note - Resident Providers to CC Resident Creating Document: GISSEL MARROQUIN RES ~ Antibiotic Timeout Antibiotic Ordered?: Yes Subjective Patient was examined at the bed, she still complains pain 8/10 in intensity on left lower extremity, cellulitis remains within the previously marked borders and denies any other acute symptoms. Objective Vital Signs Date Time Temp Pulse Resp B/P (MAP) Pulse Ox O2 Delivery O2 Flow Rate FiO2 01/17/25 15:06 98.2 75 16 104/53 (70) 96 Room Air 01/16/25 08:00 0.0 Result Diagram: 01/17/2553701/17/25537 GENERAL: Awake, alert, oriented x4 HEENT : Normocephalic, atraumatic, pupils equal and reactive to light, extraocular movements intact, no scleral icterus or conjunctival pallor, nasal mucosa is moist, oral mucosa moist, NECK: Nontender nodule felt on neck, nontender nodule felt on thyroid gland, trachea midline, no JV distention RESPIRATORY: Chest expansion equal bilaterally, breath sounds vesicular, no wheezes, or rhonchi. No use of accessory muscles, no tenderness on palpation. CARDIOVASCULAR: Tachycardic-irregularly irregular, no murmurs, no rubs, or gallops ABDOMEN: Soft, nontender, nondistended, bowel sounds present and normoactive. No organomegaly, no palpable mass, no rebound or guarding NEUROLOGICAL: Alert, oriented, normal memory, speech is normal Cranial nerves II-XII- intact Motor strength 5/5 on right side, could not elicit on left side because of pain Sensation-intact in all extremities Reflexes +2 and symmetrical Coordination is intact EXTREMITIES: Red-warm swelling felt on palpation which is tender, decreased pulsation on left lower extremity, multiple nail scratches are seen on right lower extremity and some on left lower extremity, traumatic injury at left posterior heel Psychiatric:Appropriate mood and affect Coagulation Studies Laboratory Tests Test 01/14/25 16:35 Prothrombin Time 10.0 SECONDS (9.0-12.0) INR International Normalized Ratio 1.0 INR Coagulation Comments Advance Care Planning Advanced Care plannin - 30 Minutes Plan Plan Left lower extremity cellulitis Sepsis on POA Vitals are stable, WBC is normal, Received 2 L of normal saline and 1 L of ringer lactate CT lower extremity 1. No CT evidence of an acute fracture or aggressive osseous lesion. 2. Slight relative hypoattenuation of the distal fibula which may be seen in the setting of hyperemia however if continued clinical concern for osteomyelitis and if there is overlying ulceration, osteomyelitis not excluded. 3.Significant surrounding subcutaneous adipose tissue edema of the entirety left lower extremity extending to the level of the forefoot. MRI ruled out osteomyelitis Procalcitonin -0.60 Continue vancomycin pharmacy to dose and Zosyn 4.5 g per 100 mL We will continue IV normal saline at the rate of 100 mL/hour Slightly improved however the intensity of the erythema is unchanged from yesterday AFib with RVR , Kofi Vasc score of 2 Dilated cardiomyopathy with pulmonary artery hypertension Cor pulmonale Heart rate today is 75 Explained patient about risk and benefits of Eliquis, patient agreed with the plan Echo showed LVEF of 55-60% and the pulmonary artery systolic pressure 48 Continue Eliquis 5 mg p.o. b.i.d. Continue On metoprolol succinate 50 p.o. daily Substance use Methamphetamine use substance use navigator on social consults were placed Urinalysis showed methamphetamine Anxiety Depression Patient is currently on Ativan q.2h p.r.n. Melatonin for sleep Code status: Full code DVT prophylaxis: On Eliquis PT: Ordered Prognosis: Guarded Disposition-patient was monitored in PCU, pain is controlled with [place] 10 mg, PT evaluated the patient and improved today however not ready for discharge and we will need to ambulate stairs Gissel Marroquin PGY1-Internal Medicine Resident Date of Service: Jan 17, 2025 Billing Provider: DELLA MCMAHON DO Common Visit Codes: [id number] INP/OBS CARE(HIGH) GISSEL MARROQUIN, RES Jan 17, 2025 16:25 DELLA MCMAHON DO Jan 17, 2025 16:35
[2025-01-18 02:12] VITALS: BP 134/61; PULSE 81; RESP 19; TEMP 98.8; O2SAT 94
[2025-01-18] MEDS: VANCOMYCIN LEVEL IV ONE (05:30)
[2025-01-18 06:10] LABS: MEAN PLATELET VOLUME 7.6 FL (7.4-10.4); RED CELL DISTRIBUTION WIDTH 14.0 % (11.5-14.5)
[2025-01-18 06:31] LABS: EOSINOPHILS % (MANUAL) 2.0 % (0-6); LYMPHOCYTES % (MANUAL) 21.0 % (21-51); METAMYLEOCYTES% (MANUAL) 2.0 % (0-0); MONOCYTES % (MANUAL) 9.0 % (2-12); NEUTROPHILS % (MANUAL) 66.0 % (42-75); PLATELET ESTIMATE NORMAL
[2025-01-18 06:33] LABS: CREATININE 0.83 MG/DL (0.40-0.90); TOTAL CARBON DIOXIDE 29.3 MMOL/L (24-32); eCRCL 50 ML/MIN; eGFR 68 ML/MIN
[2025-01-18 07:00] VITALS: BP 139/69; PULSE 90; RESP 18; TEMP 99.3; O2SAT 90
[2025-01-18 11:00] VITALS: BP 132/72; PULSE 92; RESP 24; TEMP 99; O2SAT 95
[2025-01-18 14:10] VITALS: RESP 19
[2025-01-18] MEDS ORDERED: vancomycin/NS 1 GM ADD-VANTAGE 250 ML X 1 DOSE IV SCH (18:00)
--- NOTE | 2025-01-18 19:11 | DISCHARGE SUMMARY-Residence ---
Discharge Summary Providers to CC Resident Creating Document: CONCEPCION VELASQUEZ JACQUIE, RES ~ Discharge Summary Admission Diagnosis: CELLULITIS, SEPSIS, A-FIB WITH RVR Hospital Course DATE OF ADMISSION: 01/14/2025 DATE OF DISCHARGE: 01/18/2025 Discharge Diagnosis\Comment: Left lower extremity cellulitis Sepsis on POA AFib with RVR , Kofi Vasc score of 2 Dilated cardiomyopathy with pulmonary artery hypertension Cor pulmonale Substance use Methamphetamine use Anxiety Depression Operations\Procedures: None Consultants: None Complications: None Condition on DC: Stable for transfer Discharge Summary: History of Present Illness This is a 69 years old female with past medical history of Asthma, Bronchitis ,Pneumonia,GERD,Chronic Pain,Anxiety,Depression ,Panic Disorder, methamphetamine use comes to ED with severe left lower extremity pain and elevated heart rate. Patient endorses fever and chills from past 2 days, and initially she noticed small 4/10 painful red bump on her lateral side of left foot over the malleolus, which is gradually progress over over entire left leg including medial side of the thigh, with pain on 9/10 intensity stabbing pain, warm and tender to touch with no aggravating or relieving factors. Patient initial EKG shows AFib with RVR, and given a dose of diltiazem IV 20 mg in ED, she is currently having heart rate of 120-130. Patient denies any chest, diaphoresis, palpitations and edema. Patient denies any history of congestive heart failure, coronary artery disease, AFib in the past Hospital course: Patient was admitted for Left lower leg swelling Secondary to cellulitis. DVT ruled out by venous Doppler. On admission patient had fever with Temperature 99.5, pulse 151, SpO2 96 on room air. WBC normal, procalcitonin 2.11, CRP:2.3, lactic acid is normal. vascular ultrasound:No left femoropopliteal venous thrombosis. Chest/thorax CTA: No CTA evidence of pulmonary embolism.. Given 1 dose of vancomycin in ED. Preliminary blood cultures are negative. Plan is to continue IV Zosyn 4.5 mg and vancomycin pharmacy to dose. Wound care and infectious diseases team were consulted. Patient also had Atrial fibrillation with RVR, CHADVASC score-2. Differential includes pulmonary embolus, structural heart disease, Initial EKG shows AFib with RVR, Initial Troponin are negative urine tox positive for methamphetamine,TSH was WNL, echocardiogram showed normal EF. Restarted anticoagulation with the Eliquis. Patient was recommended to strongly discontinue drug use given Amphetamine use disorder, Substance use navigator ordered. Patient was hemodynamically stable at the time of discharge and there was improvement in cellulitis as compared to the previous markings. Vital Signs Date Time Temp Pulse Resp B/P (MAP) Pulse Ox O2 Delivery O2 Flow Rate FiO2 01/18/25 14:10 19 01/18/25 11:00 99.0 92 132/72 (92) 95 Room Air 01/17/25 20:00 0.0 Laboratory Tests Test 01/17/25 05:38 01/18/25 05:30 White Blood Count 9.8 X10'3 9.5 X10'3 Red Blood Count 3.85 X10'6 3.81 X10'6 Hemoglobin 11.5 g/dl 11.7 g/dl Hematocrit 34.5 % 34.1 % Mean Corpuscular Volume 89.8 FL 89.3 FL Mean Corpuscular Hemoglobin 29.8 PG 30.8 PG Mean Corpuscular Hemoglobin Concent 33.2 g/dL 34.5 g/dL Red Cell Distribution Width 14.2 % 14.0 % Platelet Count 353 X10'3 409 X10'3 Mean Platelet Volume 8.0 FL 7.6 FL Neutrophils (%) (Auto) 71.3 % 69.0 % Lymphocytes (%) (Auto) 16.9 % 18.5 % Monocytes (%) (Auto) 9.3 % 9.8 % Eosinophils (%) (Auto) 1.6 % 2.0 % Basophils (%) (Auto) 0.9 % 0.7 % Neutrophils # (Auto) 7.0 X10'3 6.6 X10'3 Lymphocytes # (Auto) 1.7 X10'3 1.8 X10'3 Monocytes # (Auto) 0.9 X10'3 0.9 X10'3 Eosinophils # (Auto) 0.2 X10'3 0.2 X10'3 Basophils # (Auto) 0.1 X10'3 0.1 X10'3 CBC Comment Sodium Level 142 MMOL/L 137 MMOL/L Potassium Level 4.1 MMOL/L 4.4 MMOL/L Chloride Level 106 MMOL/L 103 MMOL/L Carbon Dioxide Level 29.5 MMOL/L 29.3 MMOL/L Anion Gap 7 5 Blood Urea Nitrogen 11 MG/DL 12 MG/DL Creatinine 0.69 MG/DL 0.83 MG/DL Estimated GFR/1.73 m2 84 ML/MIN 68 ML/MIN BUN/Creatinine Ratio 15.9 14.5 Glucose Level 102 MG/DL 95 MG/DL Calcium Level 8.3 MG/DL 8.3 MG/DL Magnesium Level 2.0 MG/DL 2.0 MG/DL Total Bilirubin 0.3 MG/DL 0.5 MG/DL Aspartate Amino Transf (AST/SGOT) 39 U/L 33 U/L Alanine Aminotransferase (ALT/SGPT) 93 U/L 75 U/L Alkaline Phosphatase 117 IU/L 119 IU/L Total Protein 6.0 G/DL 6.0 G/DL Albumin 2.0 G/DL 1.9 G/DL Globulin 4.0 G/DL 4.1 G/DL Albumin/Globulin Ratio 0.5 0.5 Chemistry Comments Differential Total Cells Counted 100 Neutrophils % (Manual) 66.0 % Lymphocytes % (Manual) 21.0 % Monocytes % (Manual) 9.0 % Eosinophils % (Manual) 2.0 % Metamyelocytes % 2.0 % Platelet Estimate Normal Red Blood Cell Morphology Normal Basophilic Stippling Vancomycin Level Trough 20.1 ug/mL Imaging: Vascular venous Doppler ultrasound of lower extremities: No left femoropopliteal venous thrombosis. If clinical concern/symptoms persist or worsen, short-interval follow-up study is suggested. Chest x-ray: Mild central interstitial prominence may be due to reactive airways disease or mild CHF. The lungs are otherwise clear. CTA chest: No CTA evidence of pulmonary embolism. Echocardiogram: Normal LV size and wall thickness. Overall systolic function is normal. Overall LVEF is 55-60%. Right ventricle is moderately dilated with grossly normal function. Estimated PA systolic pressure is 48 mmHg. The left atrium size is normal. The right atrium size is normal. Trileaflet AV appears sclerotic and mildly calcified without stenosis. Moderate insufficiency. Mild MV annular calcification without stenosis. Trace regurgitation. TV appears structurally normal with trace regurgitation. Normal pericardium. No pericardial effusion seen. Lower extremity CT: 1. No CT evidence of an acute fracture or aggressive osseous lesion. 2. Slight relative hypoattenuation of the distal fibula which may be seen in the setting of hyperemia however if continued clinical concern for osteomyelitis and if there is overlying ulceration, osteomyelitis not excluded. 3. Significant surrounding subcutaneous adipose tissue edema of the entirety left lower extremity extending to the level of the forefoot. Lower extremity MRI: Right lower leg cellulitis without evidence for abscess, myositis, or osteomyelitis. Discharge recommendations: Continue antibiotics p.o. Zyvox for 10 days. Follow up with the PCP and as400 programmer in a week. Return to the ER if you have worsening redness, pain or swelling in the legs. Strongly recommend abstinence from substance abuse *Problems/Diagnosis: (1) Atrial fibrillation with rapid ventricular response Status: Acute (2) Cellulitis of left lower leg Status: Acute Total Time Spent on D/C: > 30 Minutes Date of Service: Jan 18, 2025 Billing Provider: ARJUN CARRANZA MD Common Visit Codes: 45412-GEY/OBS DISCH DAY >30min CONCEPCION VELASQUEZ, RES Jan 18, 2025 19:02 ARJUN CARRANZA MD Jan 19, 2025 15:26
[2025-01-20] MEDS ORDERED: VANCOMYCIN LEVEL IV ONE (05:30)
[2025-01-22] MEDS ORDERED: LINE600T14 PO (00:20)
[2025-01-22] MEDS ORDERED: HYDR-3973 PO (00:20)
[2025-01-22] MEDS ORDERED: LACT-294 PO (00:20)
[2025-01-24] MEDS ORDERED: CEFD300C3 PO (10:56)
[2025-01-24] MEDS ORDERED: LACT1CAP74 PO (10:56)
== END 2025-01-18 16:42 | DRG 872 ==
LOC: ER 16:19 → ED HOLD 17:47 → PCU 3S 01-15 01:30
PROVIDERS: ADMIT Family Medicine; ATTEND Family Medicine
PROC: B32T1ZZ Computerized Tomography (CT Scan) of Left Pulmonary Artery using Low Osmolar Contrast (ICD-10-PCS; principal; 2025-01-14)
PROC: B3201ZZ Computerized Tomography (CT Scan) of Thoracic Aorta using Low Osmolar Contrast (ICD-10-PCS; 2025-01-14)
PROC: B32S1ZZ Computerized Tomography (CT Scan) of Right Pulmonary Artery using Low Osmolar Contrast (ICD-10-PCS; 2025-01-14)
DX: A41.9 Sepsis, unspecified organism (principal); L03.116 Cellulitis of left lower limb; I42.0 Dilated cardiomyopathy; I48.91 Unspecified atrial fibrillation; K21.9 Gastro-esophageal reflux disease without esophagitis; G89.29 Other chronic pain; F32.A Depression, unspecified; F41.0 Panic disorder [episodic paroxysmal anxiety]; J45.909 Unspecified asthma, uncomplicated; F15.90 Other stimulant use, unspecified, uncomplicated; I27.21 Secondary pulmonary arterial hypertension; I27.81 Cor pulmonale (chronic); Z79.899 Other long term (current) drug therapy
CPT/HCPCS: 36415; 71045; 71275; 73700; 73720; 80048; 80053; 80202; 80305; 80320; 81001; 83036; 83605; 83735; 83880; 84145; 84443; 84484; 85007; 85025; 85610; 85651; 86140; 87040; 87081; 93005; 93306; 93971; 96365; 97116; 97161; 97530; 99285; A6260; G0378; J2270; J2543; J3373; J3374; J3490; J7030; J7040; J7120; Q9967

== ENCOUNTER 2025-02-07 12:19 | Emergency (ER) | payer MEDICARE ==
[~2025-02-07] VITALS: Ht 167.6 cm; Wt 79.0 kg
[~2025-02-07 12:19] MED LIST changes: +CEFD300C3 PO; -CITA-178 PO; +HYDR-3973 PO; +LACT-294 PO; +LACT1CAP74 PO; -METH-603 PO; -NORCO10T PO; -ZOF4T PO
--- NOTE | 2025-02-07 12:51 | Physician Documentation ---
History of Present Illness ~ Chief Complaint: Leg Pain Stated Complaint: CELLULITIS Time Seen by MD: 12:30 Primary Medical Doctor: [facility] Source: patient Mode of Arrival: POV Exam Limitations: no limitations HPI 70-year-old female with chief complaint redness and swelling to her left lower leg which she states has been an intermittent issue now for the past six weeks. She has been on two different courses of antibiotics. She does report that her lower leg feels swollen in the skin feels tight in sick. she had an ultrasound when symptoms 1st started which she states was negative for a DVT. No history of prior DVT or any blood clot issues. Patient has never had any surgery on her left leg she has not know why the left leg is more swollen than her right. 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 No chest pain, shortness of breath, fever, chills. Tetanus witin 5 years: Yes Medication Reconciliation Allergies: Coded Allergies: No Known Allergies (Unverified , 02/07/25) Scheduled Cefdinir* (Cefdinir*), 1 CAP PO Q12H Lactobacillus Acidophilus (Acidophilus Probiotic), 1 CAP PO Q12H, (Reported) Lactobacillus Rhamnosus GG (Culturelle), 1 CAP PO DAILY Scheduled PRN Hydrocodone Bit/Acetaminophen (Hydrocodone-Apap 10-325 Tablet), 1 TAB PO QID PRN PRN for pain, (Reported) Past Medical History Past Medical History: No Pertinent History, Asthma, Bronchitis, Pneumonia, GERD, Chronic Pain, Anxiety, Depression, Panic Disorder Past Surgical History: orthopedic surgeries Alcohol Use: None Drug Use: none Lives with: Spouse Occupation: disabled Review of Systems All Other Systems at this time: Reviewed and Negative Physical Exam Vital Signs: Temperature: 98.9, Source: Oral, Heart Rate: 78, Respiratory Rate: 16, BP: 131/69, Pulse Oximetry: 97, Weight: 79.000 Oxygen Flow Rate: 0 Physical Exam General Appearance: Alert, WD/WN. NAD. HEENT: NCAT, PERRL, EOMI. Neck: Supple, trachea midline. Cardiovascular: RRR. No m/r/g. Lungs: CTAB. Breathing unlabored Extremities: Left lower anterior tibia skin has violaceous hue with overlying brawny discoloration. Pedal pulses 2+ bilaterally. Left lower leg is edematous compared to right leg. Mild calf ttp. Skin: Warm/dry, normal color Neurological: Alert and oriented x4, normal gait. Psychiatric: Affect congruent with mood. Progress Results/Orders Reviewed/noted all lab results: Yes Results/Orders Orders - DOMINGO LIZ Vl Venous (02/07/25 12:46) Completed Orders - DOMINGO LIZ Vl Venous (02/07/25 12:46) Vital Signs 02/07/25 02/07/25 12:25 12:58 Temp 98.9 98.9 Pulse 78 74 Resp 16 12 B/P (MAP) 131/69 110/58 (75) Pulse Ox 97 98 O2 Flow Rate 0 0 EKG/XRAY/CT/US/VASC/MRI Vascular : Interpreted By: radiologist Vascular Study: lower extremity venous Impression U/S OF LEFT LEG NEGATIVE FOR DVT Medical Decision Making Additional information obtaine: N/A Findings n/a General Diff Dx:Considerations: Include: Abrasion, Contusion, Fracture, Hematoma, Laceration, Malunion, Neurovascular injury, Open fracture, Sprain, Ulcer, Other Knee Diff Dx:Considerations: Unlikely: Other Ankle Diff Dx:Considerations: Unlikely: Other Foot Diff Dx:Considerations: Unlikely: Other Toe Diff Dx:Considerations: Unlikely: Other Additional Comment UNFORTUNATELY THE RADIOLOGIST IN HIS REPORT FROM JUST OVER A MONTH AGO PUT IN HIS REPORT TO REPEAT AN ULTRASOUND IF THERE IS CLINICAL CONCERN AND THUS I FELT OBLIGATED TO REPEAT THE ULTRASOUND EVEN THOUGH I HAD LOW SUSPICION FOR A DVT. REPEAT ULTRASOUND NEGATIVE FOR DVT. EXAM FINDINGS SHOW NO FINDINGS CONCERNING FOR CELLULITIS. Departure Disposition: HOME / SELF CARE / HOMELESS Impression: Primary Impression: Venous stasis dermatitis of left lower extremity Additional Instructions: NO EVIDENCE FOR CELLULITIS ON EXAM TODAY WE REPEATED U/S AND NO DVT F/U WITH PCP FOR OUTPATIENT U/S TO LOOK AT VALVE COMPETENCE Referrals: NO PRIMARY CARE PROVIDER (PCP) Signature Scribe Signature: X Attestation: DOMINGO JULIO Feb 07, 2025 12:51
[2025-02-07 12:58] VITALS: TEMP 98.9
--- NOTE | 2025-02-07 13:35 | VASCULAR REPORT ---
VASC VL VENOUS HISTORY: [place] COMPARISON: MR MRI LOWER EXTREMITY LEFT on DOS: 01/16/25, CT CT LOWER EXTREMITY on DOS: 01/15/25, VASC VL VENOUS on DOS: 01/14/25 TECHNIQUE: Duplex doppler evaluation of the deep venous system of the lower extremity from the common femoral veins, superficial femoral vein, great saphenous vein, deep femoral vein, popliteal vein, and calf veins, including color doppler and spectral/pulsed waveform analysis, was performed. FINDINGS: Right: - Common femoral vein: Compressible Left: - Common femoral vein: Compressible - Deep femoral vein: Compressible - Femoral vein: Compressible - Popliteal vein: Compressible - Posterior tibial vein: Waveforms present - Peroneal vein: Waveforms present - Other: Nothing IMPRESSION: No left lower extremity deep venous thrombosis.
[2025-02-07 15:54] VITALS: BP 122/101; PULSE 67; RESP 12; O2SAT 97
== END 2025-02-07 15:57 | disposition home or self-care (01) ==
LOC: ER 12:20
DX: I87.2 Venous insufficiency (chronic) (peripheral) (principal); K21.9 Gastro-esophageal reflux disease without esophagitis; F41.9 Anxiety disorder, unspecified; F32.A Depression, unspecified; G89.29 Other chronic pain; Z79.899 Other long term (current) drug therapy; Z98.890 Other specified postprocedural states
CPT/HCPCS: 93971; 99284